=== PATIENT | female | born 1985 | race Caucasian/White ===

== ENCOUNTER 2019-06-19 16:20 | Emergency (ER) | payer MEDICAID ==
[2019-06-19] MEDS ORDERED: MOTRIN 600 MG PO ONE (17:14)
--- NOTE | 2019-06-19 17:19 | ERPHSYRPT ---
- History of Present Illness Time Seen by Provider: 06/19/19 17:00 Source: patient Exam Limitations: no limitations Patient Subjective Stated Complaint: 1000 am some boxes fell on my wrist at work Triage Nursing Assessment: c/o pain in left wrist. Patient states boxes fell on wrist at work this am. Bruising to lateral aspect left wrist noted, no deformity noted, distal neuro/vascular intact. Cap refill < 3 sec. bruising to wrist noted. No deformity seen. Physician History: Patient had an approximately 15 pound box fall from approximately 6 feet onto her left wrist while trying to catch the box at her chest level. Occurred: hours ago (6) Method of Injury: direct blow Quality: constant Severity of Pain-Max: moderate Severity of Pain-Current: moderate Extremities Pain Location: wrist: left Modifying Factors: Worsens With: movement Associated Symptoms: No back pain, No chills, No chest discomfort, No chest pain , No dyspnea, No fever, No jaw pain, No nausea, No neck pain, No sweating, No short of breath, No vomiting Allergies/Adverse Reactions: No Known Drug Allergies Allergy (Unverified 06/19/19 17:56) Hx Tetanus, Diphtheria Vaccination/Date Given: Yes Hx Influenza Vaccination/Date Given: Yes Hx Pneumococcal Vaccination/Date Given: No Immunizations Up to Date: No - Review of Systems Constitutional: No Fever, No Chills, No Fatigue Eyes: No Eye Pain, No Vision Changes Ears, Nose, & Throat: No Ear Pain, No Nose Pain, No Epistaxis, No Throat Pain, No Throat Swelling Respiratory: No Cough, No Dyspnea Cardiac: No Chest Pain, No Palpitations, No Syncope Abdominal/Gastrointestinal: No Abdominal Pain, No Nausea, No Vomiting Genitourinary Symptoms: No Hematuria, No Flank Pain Musculoskeletal: No Arthralgias, No Back Pain, No Neck Pain Skin: No Pruritis, No Rash Neurological: No Focal Weakness, No Lethargy, No Parasthesia, No Tremors Psychological: No Anxiety, No Emotional Lability Hematologic/Lymphatic: No Easy Bleeding, No Easy Bruising All Other Systems: Reviewed and Negative - Past Medical History Pertinent Past Medical History: Yes Neurological History: No Pertinent History ENT History: No Pertinent History Cardiac History: No Pertinent History Respiratory History: No Pertinent History Endocrine Medical History: No Pertinent History Musculoskeletal History: Fractures GI Medical History: No Pertinent History History: No Pertinent History Female Reproductive Disorders: No Pertinent History - Past Surgical History Past Surgical History: Yes Neuro Surgical History: No Pertinent History Cardiac: No Pertinent History Respiratory: No Pertinent History Gastrointestinal: No Pertinent History Genitourinary: No Pertinent History Musculoskeletal: No Pertinent History Female Surgical History: No Pertinent History Other Surgical History: Fx left wrist 18 yrs ago. tubal ligation. choleycystectomy. c section x2 - Social History Smoking Status: Current every day smoker How long have you smoked: 15 yrs Exposure to second hand smoke: Yes Drug Use: none Patient Lives Alone: No - Female History Hx Last Menstrual Period: 06/02/19 Hx Now: No - Nursing Vital Signs Nursing Vital Signs: Initial Vital Signs Temperature 98.5 F 06/19/19 16:40 Pulse Rate 90 06/19/19 16:40 Respiratory Rate 18 06/19/19 16:40 Blood Pressure 161/85 06/19/19 16:40 Pain Scale Pain Intensity 5 - Physical Exam General Appearance: no apparent distress Eyes, Ears, Nose, Throat Exam: normal ENT inspection, pharynx normal, moist mucous membranes Neck Exam: normal inspection, non-tender, supple, full range of motion, No Brudzinski, No limited range of motion Cardiovascular/Respiratory Exam: chest non-tender, normal breath sounds, regular rate/rhythm, heart sounds normal, no ecchymosis, no JVD, no M/R/G, no respiratory distress Abdominal Exam: non-tender, soft Back Exam: normal inspection, No CVA tenderness, No vertebral tenderness, No rash Shoulder Exam: normal inspection, non-tender, no evidence of injury, normal ROM Elbow/Forearm Exam: normal inspection, non-tender, no evidence of injury, normal ROM Wrist Exam: normal ROM, bone tenderness (left distal radial styloid; no snuff box tenderness bilaterally; no volar scaphoid tenderness bilaterally), pain, soft tissue tenderness, No abrasions, No deformity, No swelling Hand Exam: normal inspection, non-tender, no evidence of injury, normal ROM, No abrasions, No asymmetry, No bone tenderness, No laceration, No soft tissue tenderness, No stiffness, No swelling DTR - Upper Extremity Exam: tricep (R): 2+, tricep (L): 2+ Neuro/Tendon Exam: normal sensation, normal motor functions, normal tendon functions, no evidence tendon injury, No motor deficit, No sensory deficit Mental Status Exam: alert, oriented x 3, cooperative Skin Exam: normal color, warm, dry, No rash, No petechiae, No jaundice SpO2 Interpretation: normal O2 Delivery: Room Air - Course Nursing assessment & vital signs reviewed: Yes - Radiology Exams Left Wrist X-ray Interpretation: Interpreted by me, Reviewed by me, Negative, No Fracture, Nml Alignment, Nml Soft Tissues Ordered Tests: Active Orders 24 hr Category Date Time Status WRIST (MIN 3 VIEWS) Stat Exams 06/19/19 17:15 Taken Medication Summary Discontinued Medications Generic Name Dose Route Start Last Admin Trade Name Jorge PRN Reason Stop Dose Admin Ibuprofen 600 mg 06/19/19 17:14 06/19/19 17:23 Motrin 600 Mg PO 06/19/19 17:15 600 mg STAT ONE Administration Ibuprofen Confirm 06/19/19 17:20 Motrin 600 Mg Administered 06/19/19 17:21 Dose 600 mg .ROUTE .STSemanticator-MED ONE - Progress Progress: improved Progress Note: 06/19/19 17:55 pain is improving after Ibuprofen Counseled pt/family regarding: diagnosis, need for follow-up, rad results - Departure Departure Disposition: Home Clinical Impression: Contusion of left wrist, initial encounter, Elevated blood pressure reading without diagnosis of hypertension, Left wrist tendonitis Condition: Good Critical Care Time: No Referrals: AURELIO GAVIRIA DO [ACTIVE STAFF] - Follow Up with PCP/3 days DOCTOR,NO FAMILY [Primary Care Provider] - [facility] M-F [id number] Instructions: Contusion (DC), Tendonitis (DC) Additional Instructions: Your x-rays were read as negative by Emergency Department attending. We will get a second opinion in the morning of 06/20/2019 and will notify you if E. impression changes any of your treatment. Follow up with the orthopedic clinic at 8 AM on 06/20/2019 the pain is still significant at your wrist. Return immediately back to the emergency room if you have any loss of function, discoloration to the skin, numbness, loss of strength, or any other concerning sign or symptom that was not present at today's emergency department visit for immediate reevaluation in the emergency department. Forms: Work/School Release Form Prescriptions: Etodolac 400 mg [Lodine 400 mg] 400 mg PO BID PRN PRN #20 tablet PRN Reason: Pain
[2019-06-19] MEDS ORDERED: MOTRIN 600 MG ONE (17:20)
[2019-06-19 17:32] VITALS: O2SAT 99
[2019-06-19 18:26] VITALS: BP 138/68; PULSE 77
--- NOTE | 2019-06-20 08:44 | XRAY ---
Indication: Pain following injury. Comparison: None 3 views of the left wrist demonstrates radiocarpal joint space narrowing and nonunited ossification center of the distal ulna. Mild widening of the scaphoid lunate interval possibly underlying ligamentous tear. No other bony, articular, or soft tissue abnormalities.
== END 2019-06-19 18:23 | disposition home or self-care (01) ==
LOC: ED 16:20
DX: S60.212A Contusion of left wrist, initial encounter (principal); R03.0 Elevated blood-pressure reading, without diagnosis of hypertension; M77.9 Enthesopathy, unspecified; W22.8XXA Striking against or struck by other objects, initial encounter; Y93.89 Activity, other specified; Y92.29 Other specified public building as the place of occurrence of the external cause; Y99.0 Civilian activity done for income or pay
CPT/HCPCS: 73110; 99284; A9270-GY

== ENCOUNTER 2019-07-23 11:50 | Emergency (ER) | payer MEDICAID ==
--- NOTE | 2019-07-23 11:54 | ERPHSYRPT ---
- History of Present Illness Time Seen by Provider: 07/23/19 11:54 Source: patient, family Exam Limitations: no limitations Physician History: 34 y/o white female presents with right lower molar fx tooth for 3 months. 2 to 3 days ago, abscess present ruptured and pain briefly improved. pt has increased pain. pt states she is allergic to amoxicillin but can take keflex. Timing/Duration: gradual onset, persistent, days (2 to 3) Severity: moderate ENT Location: dental Prearrival Treatment: over the counter meds Associated Symptoms: ear pain (R), tooth pain Allergies/Adverse Reactions: Penicillins Allergy (Verified 07/23/19 12:05) Hx Tetanus, Diphtheria Vaccination/Date Given: Yes Hx Influenza Vaccination/Date Given: Yes Hx Pneumococcal Vaccination/Date Given: No - Review of Systems Constitutional: No Symptoms Eyes: No Symptoms Ears, Nose, & Throat: No Symptoms Respiratory: No Symptoms Cardiac: No Symptoms Abdominal/Gastrointestinal: Vomiting (once after swallowing pus from ruptured dental abscess) Genitourinary Symptoms: No Symptoms Musculoskeletal: No Symptoms Skin: No Symptoms Neurological: No Symptoms Psychological: No Symptoms Endocrine: No Symptoms Hematologic/Lymphatic: Easy Bruising Immunological/Allergic: No Symptoms All Other Systems: Reviewed and Negative - Past Medical History Pertinent Past Medical History: Yes Neurological History: No Pertinent History ENT History: No Pertinent History Cardiac History: No Pertinent History Respiratory History: No Pertinent History Endocrine Medical History: No Pertinent History Musculoskeletal History: Fractures GI Medical History: No Pertinent History History: No Pertinent History Female Reproductive Disorders: No Pertinent History - Past Surgical History Past Surgical History: Yes Neuro Surgical History: No Pertinent History Cardiac: No Pertinent History Respiratory: No Pertinent History Gastrointestinal: No Pertinent History Genitourinary: No Pertinent History Musculoskeletal: No Pertinent History Female Surgical History: No Pertinent History Other Surgical History: Fx left wrist 18 yrs ago. tubal ligation. choleycystectomy. c section x2 - Social History Smoking Status: Current every day smoker How long have you smoked: 15 yrs Exposure to second hand smoke: Yes Drug Use: none Patient Lives Alone: No - Nursing Vital Signs Nursing Vital Signs: Initial Vital Signs Temperature 98.4 F 07/23/19 11:55 Pulse Rate 87 07/23/19 11:55 Respiratory Rate 20 07/23/19 11:55 Blood Pressure 135/84 07/23/19 11:55 O2 Sat by Pulse Oximetry 97 07/23/19 11:55 Pain Scale Pain Intensity 7 - Physical Exam General Appearance: no apparent distress, alert, anxiety Eye Exam: bilateral eye: normal inspection, PERRL, EOMI Ear Exam: bilateral ear: auricle normal Nasal Exam: normal inspection Throat Exam: pharynx normal, dental tenderness (right lower molar #30), No uvula swelling, No voice changes Neck Exam: normal inspection, non-tender, supple, full range of motion, trachea midline Cardiovascular/Respiratory Exam: chest non-tender, no respiratory distress Abdominal Exam: non-tender Neurologic Exam: alert, oriented x 3, cooperative, 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 follow up with dentist tomorrow for definitive care. Prescriptions: Hydrocodone/APAP 5-325 Tab^^^ [Home 5-325 Tablet^^^] 1 tab PO Q8H PRN PRN #6 tablet MDD 3 PRN Reason: Pain Cephalexin Mh 500 mg [Keflex 500 mg] 500 mg PO TID #21 capsule
[2019-07-23 12:05] VITALS: BP 135/84; PULSE 87; O2SAT 97
== END 2019-07-23 12:47 | disposition home or self-care (01) ==
LOC: ED 11:50
DX: S02.5XXA Fracture of tooth (traumatic), initial encounter for closed fracture (principal); K04.7 Periapical abscess without sinus; K08.89 Other specified disorders of teeth and supporting structures; H92.01 Otalgia, right ear
CPT/HCPCS: 99283

== ENCOUNTER 2019-09-02 10:14 | Emergency (ER) | payer MEDICAID ==
[2019-09-02 10:27] VITALS: BP 142/92; PULSE 80; O2SAT 99
[2019-09-02] MEDS ORDERED: Rocephin 1000 MG INJ IM ONE (10:38)
[2019-09-02] MEDS ORDERED: TORAdol 30 mg Injection IM ONE (10:38)
--- NOTE | 2019-09-02 10:43 | ERPHSYRPT ---
- History of Present Illness Time Seen by Provider: 09/02/19 10:40 Source: patient Exam Limitations: no limitations Patient Subjective Stated Complaint: Pt woke around 0200 this am with pain to the bottom back right of mouth with an abscess and then when she woke up around 799 it had popped and now she has more pain and feels sick to her stomach, has an appt on to have that molar removed Triage Nursing Assessment: Pt c/o of mouth pain, hx of mouth pain from her bottom right molar, vitals wnl, rates pain 8/10, many dental caries Physician History: Pt woke around 0200 this am with pain to the bottom back right of mouth with an abscess and then when she woke up around 799 it had popped and now she has more pain and feels sick to her stomach, has an appt on to have that molar removed Associated Symptoms: denies symptoms Allergies/Adverse Reactions: Penicillins Allergy (Verified 09/02/19 10:26) Hx Tetanus, Diphtheria Vaccination/Date Given: Yes Hx Influenza Vaccination/Date Given: No Hx Pneumococcal Vaccination/Date Given: No - Review of Systems Constitutional: No Symptoms Eyes: No Symptoms Ears, Nose, & Throat: Loose Teeth Respiratory: No Symptoms Cardiac: No Symptoms Abdominal/Gastrointestinal: No Symptoms Genitourinary Symptoms: No Symptoms - Past Medical History Pertinent Past Medical History: Yes Neurological History: No Pertinent History ENT History: No Pertinent History Cardiac History: No Pertinent History Respiratory History: No Pertinent History Endocrine Medical History: No Pertinent History Musculoskeletal History: Fractures GI Medical History: No Pertinent History History: No Pertinent History Psycho-Social History: Anxiety, Depression Female Reproductive Disorders: No Pertinent History - Past Surgical History Past Surgical History: Yes Neuro Surgical History: No Pertinent History Cardiac: No Pertinent History Respiratory: No Pertinent History Gastrointestinal: No Pertinent History Genitourinary: No Pertinent History Musculoskeletal: No Pertinent History Female Surgical History: No Pertinent History Other Surgical History: Fx left wrist 18 yrs ago. tubal ligation. choleycystectomy. c section x2 - Social History Smoking Status: Current every day smoker How long have you smoked: 15 yrs Exposure to second hand smoke: Yes Drug Use: none Patient Lives Alone: No - Female History Hx Now: No (tubal) - Nursing Vital Signs Nursing Vital Signs: Initial Vital Signs Temperature 98.0 F 09/02/19 10:18 Pulse Rate 80 09/02/19 10:18 Blood Pressure 142/92 09/02/19 10:18 O2 Sat by Pulse Oximetry 99 09/02/19 10:18 Pain Scale Pain Intensity 8 - Physical Exam General Appearance: no apparent distress Eye Exam: PERRL/EOMI Ears, Nose, Throat Exam: normal ENT inspection Neck Exam: normal inspection Respiratory Exam: normal breath sounds Cardiovascular Exam: regular rate/rhythm SpO2: 99 - Course Nursing assessment & vital signs reviewed: Yes Ordered Tests: Medication Summary Discontinued Medications Generic Name Dose Route Start Last Admin Trade Name Jorge PRN Reason Stop Dose Admin Ceftriaxone Sodium 1,000 mg 09/02/19 10:38 Rocephin 1000 Mg Inj IM 09/02/19 10:39 STAT ONE Ketorolac Tromethamine 60 mg 09/02/19 10:38 Toradol 30 Mg Injection IM 09/02/19 10:39 STAT ONE - Progress Progress: improved Counseled pt/family regarding: diagnosis, need for follow-up - Departure Departure Disposition: Home Clinical Impression: Pain, dental Fractured tooth Qualifiers: Encounter type: initial encounter Fracture type: closed Qualified Code(s): S02.5XXA - Fracture of tooth (traumatic), initial encounter for closed fracture Condition: Stable Critical Care Time: No Referrals: DOCTOR,NO FAMILY [Primary Care Provider] - Instructions: Tooth Decay, Adult (DC), Dental Pain (DC), Tooth Abscess (DC) Additional Instructions: Discharge/Care Plan ITZEL UPTON was seen on 09/02/19 in the Emergency Room. The patient was counseled regarding Diagnosis,Lab results, Imaging studies, need for follow up and when to return to the Emergency Room. Prescriptions given: Discharge Note I have spoken with the patient and/or caregivers. I have explained the patient' s condition, diagnosis and treatment plan based on the information available to me at this time. I have answered the patient's and/or caregiver's questions and addressed any concerns. The patient and/or caregivers have as good understanding of the patient's diagnosis, condition and treatment plan as can be expected at this point. The vital signs have been stable. The patient's condition is stable and appropriate for discharge from the emergency department. The patient will pursue further outpatient evaluation with the primary care physician or other designated or consulting physician as outlined in the discharge instructions. The patient and/or caregivers are agreeable to this plan of care and follow-up instructions have been explained in detail. The patient and/or caregivers have received these instruction. The patient/and or caregivers are aware that any significant change in condition or worsening of symptoms should prompt an immediate return to this or the closest emergency department or call 911. Prescriptions: Doxycycline Hyclate 100 mg PO BID #20 tablet
[2019-09-02] MEDS ORDERED: Rocephin 1000 MG INJ ONE (11:01)
[2019-09-02] MEDS ORDERED: TORAdol 30 mg Injection ONE (11:01)
== END 2019-09-02 11:18 | disposition home or self-care (01) ==
LOC: ED 10:14
DX: K08.89 Other specified disorders of teeth and supporting structures (principal); S02.5XXA Fracture of tooth (traumatic), initial encounter for closed fracture
CPT/HCPCS: 96372; 99283; J0696; J1885

== ENCOUNTER 2019-09-20 09:02 | Emergency (ER) | payer OTHER ==
[2019-09-20 09:14] VITALS: BP 134/92; PULSE 87; O2SAT 96
[2019-09-20] MEDS ORDERED: TETRACAINE 0.5% STERI-UNIT SOL OP ONE (09:22)
[2019-09-20] MEDS ORDERED: Fluor-I-Strip/Ful-Flo OP ONE ×2 (09:22→09:29)
[2019-09-20] MEDS ORDERED: TETRACAINE 0.5% STERI-UNIT SOL OP STA (09:29)
[2019-09-20] MEDS ORDERED: Erythromycin 3.5 GM OPHTH. OP ONE (09:30)
[2019-09-20] MEDS ORDERED: Erythromycin 1 GM ONE (09:31)
--- NOTE | 2019-09-20 09:44 | ERPHSYRPT ---
- History of Present Illness Time Seen by Provider: 09/20/19 09:23 Source: patient Exam Limitations: no limitations Patient Subjective Stated Complaint: Pt woke up this morning with right bottom eye lid swollen, lid is red, eye is normal color, rates pain 4/10 Triage Nursing Assessment: Pt here by herself, vitals wnl, rates pain 4/10 in right eye, denies injury, states that her dog slept right by her last night and was releasing gas by her eyes, doesn't appear to be in any distress Timing/Duration: today Location: right eye Severity: moderate Apparent Injury: no Associated Symptoms: itching, redness, matting, eyelid swelling, No foreign body sensation, No decreased vision, No blurred vision, No double vision Visual Assistive Devices: None Chemical Exposure: No Trauma: No Welding Arc/Tanning Bed Exposure: No Allergies/Adverse Reactions: Penicillins Allergy (Verified 09/20/19 09:14) Hx Tetanus, Diphtheria Vaccination/Date Given: Yes Hx Influenza Vaccination/Date Given: No Hx Pneumococcal Vaccination/Date Given: No - Review of Systems Constitutional: No Fever, No Chills Eyes: No Symptoms Ears, Nose, & Throat: No Symptoms Respiratory: No Cough, No Dyspnea Cardiac: No Chest Pain, No Edema, No Syncope Abdominal/Gastrointestinal: No Abdominal Pain, No Nausea, No Vomiting, No Diarrhea Genitourinary Symptoms: No Dysuria Musculoskeletal: No Back Pain, No Neck Pain Skin: No Rash Neurological: No Dizziness, No Focal Weakness, No Sensory Changes Psychological: No Symptoms Endocrine: No Symptoms All Other Systems: Reviewed and Negative - Past Medical History Pertinent Past Medical History: Yes Neurological History: No Pertinent History ENT History: No Pertinent History Cardiac History: No Pertinent History Respiratory History: No Pertinent History Endocrine Medical History: No Pertinent History Musculoskeletal History: Fractures GI Medical History: No Pertinent History History: No Pertinent History Psycho-Social History: Anxiety, Depression Female Reproductive Disorders: No Pertinent History - Past Surgical History Past Surgical History: Yes Neuro Surgical History: No Pertinent History Cardiac: No Pertinent History Respiratory: No Pertinent History Gastrointestinal: No Pertinent History Genitourinary: No Pertinent History Musculoskeletal: No Pertinent History Female Surgical History: No Pertinent History Other Surgical History: Fx left wrist 18 yrs ago. tubal ligation. choleycystectomy. c section x2 - Social History Smoking Status: Current every day smoker How long have you smoked: 15 yrs Exposure to second hand smoke: Yes Drug Use: none Patient Lives Alone: No - Female History Hx Now: No - Nursing Vital Signs Nursing Vital Signs: Initial Vital Signs Temperature 98.2 F 09/20/19 09:08 Pulse Rate 87 09/20/19 09:08 Respiratory Rate 14 09/20/19 09:08 Blood Pressure 134/92 09/20/19 09:08 O2 Sat by Pulse Oximetry 96 09/20/19 09:08 Pain Scale Pain Intensity 4 - Physical Exam General Appearance: no apparent distress Vision Acuity Degree Evaluation Phase: Uncorrected Vision Acuity Right Eye: 20/70 Vision Acuity Left Eye: 20/70 Eye Exam: bilateral eye: normal inspection, PERRL, EOMI, eyelid inflammation Ears, Nose, Throat Exam: normal ENT inspection Neck Exam: normal inspection Respiratory Exam: normal breath sounds Cardiovascular Exam: regular rate/rhythm Gastrointestinal Exam: soft, normal bowel sounds Extremity Exam: normal inspection Neurologic: alert, oriented x 3, cooperative Skin Exam: normal color SpO2: 96 Comments: Rt. eye is injected. She awoke this AM with matting of her eye. NO NEWBY. No associated numbness, tingling or weakness. NO foreign bodies or corneal abrasion. NO acute change in visual acuity. Crusting observed at medial canthus of right eye Ordered Tests: Active Orders 24 hr Category Date Time Status Nursing [Miscellaneous Nursing Order] ROUTINE Care 09/20/19 09:37 Active Medication Summary Discontinued Medications Generic Name Dose Route Start Last Admin Trade Name Baldevq PRN Reason Stop Dose Admin Erythromycin 3.5 gm 09/20/19 09:30 09/20/19 09:32 Erythromycin 3.5 Gm Ophth. OP 09/20/19 09:31 3.5 gm STAT ONE Administration Erythromycin Confirm 09/20/19 09:31 Erythromycin 1 Gm Administered 09/20/19 09:32 Dose 1 gm .ROUTE .STK-MED ONE Fluorescein Sodium Confirm 09/20/19 09:22 Azjgp-U-Ynbyz/Ful-Sudhir Administered 09/20/19 09:23 Dose 1 mg OP .STK-MED ONE Fluorescein Sodium 1 mg 09/20/19 09:29 09/20/19 09:32 Edhwa-U-Pvjfp/Ful-Sudhir OP 09/20/19 09:30 1 mg STAT ONE Administration Tetracaine HCl Confirm 09/20/19 09:22 Tetracaine 0.5% Steri-Unit Tricia Administered 09/20/19 09:23 Dose 4 ml OP .STK-MED ONE Tetracaine HCl 4 ml 09/20/19 09:29 09/20/19 09:32 Tetracaine 0.5% Steri-Unit Tricia OP 09/20/19 09:30 4 ml STAT STA Administration - Progress Progress: improved (eye was irrigated. Erythromycin ophthalmic ointment applied. Prescription for same provided. She agrees to see ophthalmology within 48 hours. ) - Departure Departure Disposition: Home (Follow up with ophtalmology) Clinical Impression: Bacterial conjunctivitis of right eye Condition: Good Critical Care Time: No Referrals: DOCTOR,NO FAMILY [Primary Care Provider] - Additional Instructions: Please follow up with your eye doctor or [facility] [phone] Discharge/Care Plan ITZEL UPTON was seen on 09/20/19 in the Emergency Room. The patient was counseled regarding Diagnosis,Lab results, Imaging studies, need for follow up and when to return to the Emergency Room. Prescriptions given: Discharge Note I have spoken with the patient and/or caregivers. I have explained the patient' s condition, diagnosis and treatment plan based on the information available to me at this time. I have answered the patient's and/or caregiver's questions and addressed any concerns. The patient and/or caregivers have as good understanding of the patient's diagnosis, condition and treatment plan as can be expected at this point. The vital signs have been stable. The patient's condition is stable and appropriate for discharge from the emergency department. The patient will pursue further outpatient evaluation with the primary care physician or other designated or consulting physician as outlined in the discharge instructions. The patient and/or caregivers are agreeable to this plan of care and follow-up instructions have been explained in detail. The patient and/or caregivers have received these instruction. The patient/and or caregivers are aware that any significant change in condition or worsening of symptoms should prompt an immediate return to this or the closest emergency department or call 911. Prescriptions: Erythromycin Base 3.5 gm [Erythromycin 3.5 GM OPHTH.] 3.5 gm OP QID #1 tube
== END 2019-09-20 10:09 | disposition home or self-care (01) ==
LOC: ED 09:02
DX: H10.89 Other conjunctivitis (principal)
CPT/HCPCS: 99283; A9270-GY